=== PATIENT | female | born 1990 | race African-American/Black ===

== ENCOUNTER 2019-05-02 09:44 | Emergency (ER) | payer OTHER ==
[~2019-05-02] VITALS: Ht 167.6 cm; Wt 59.0 kg
[2019-05-02 10:18] VITALS: BP 117/68
[2019-05-02] MEDS ORDERED: benadryl (10:18)
[2019-05-02] MEDS ORDERED: PREDNISONE 20MG TABLET PO ONE (10:45)
== END 2019-05-02 10:58 | disposition home or self-care (01) ==
LOC: ER 09:44
DX: R21 Rash and other nonspecific skin eruption (principal)
CPT/HCPCS: 99283; J7512; 99282

== ENCOUNTER 2019-05-13 09:59 | Emergency (ER) | payer OTHER ==
[~2019-05-13] VITALS: Ht 167.6 cm; Wt 59.0 kg
[~2019-05-13 09:59] MED LIST: benadryl
[2019-05-13 10:35] VITALS: BP 128/77
== END 2019-05-13 11:10 | disposition home or self-care (01) ==
LOC: ER 09:59
DX: L50.9 Urticaria, unspecified (principal)
CPT/HCPCS: 81025; 99282; 99283

== ENCOUNTER 2021-01-10 16:31 | Emergency (ER) | payer OTHER ==
[~2021-01-10] VITALS: Ht 167.6 cm; Wt 60.0 kg
[2021-01-10 18:21] VITALS: BP 116/71
== END 2021-01-10 18:22 | disposition home or self-care (01) ==
LOC: ER 16:31
DX: L50.0 Allergic urticaria (principal)
CPT/HCPCS: 99281

== ENCOUNTER 2021-01-28 11:43 | Emergency (ER) | payer OTHER ==
[~2021-01-28] VITALS: Ht 167.6 cm; Wt 59.0 kg
[2021-01-28] MEDS ORDERED: EPINEPHRINE 1:1000 1 MG/ML AMP IM ONE (12:00)
[2021-01-28] MEDS ORDERED: DIPHENHYDRAMINE 50MG/ML VIAL IV ONE (12:00)
[2021-01-28] MEDS ORDERED: DEXAMETHASONE 4MG/ML 1ML VIAL IV ONE (12:00)
[2021-01-28] MEDS ORDERED: EPIN0.3P3 IM (14:56)
[2021-01-28 15:05] VITALS: BP 11/73
== END 2021-01-28 15:05 | disposition home or self-care (01) ==
LOC: ER 11:43
DX: R07.0 Pain in throat (principal); Z91.040 Latex allergy status
CPT/HCPCS: 96374; 99283; J1100

== ENCOUNTER 2023-06-11 07:25 | Emergency (ER) | payer OTHER ==
[~2023-06-11] VITALS: Ht 162.6 cm; Wt 66.0 kg
[~2023-06-11 07:25] MED LIST changes: +EPIN0.3P3 IM
[2023-06-11 07:49] VITALS: O2SAT 99
[2023-06-11 10:45] VITALS: BP 117/76; PULSE 94; RESP 19; TEMP 98.3
== END 2023-06-11 10:50 | disposition home or self-care (01) ==
LOC: ER 07:25
DX: O99.511 Diseases of the respiratory system complicating pregnancy, first trimester (principal); Z3A.01 Less than 8 weeks gestation of pregnancy; Z91.040 Latex allergy status
CPT/HCPCS: 99283; Z7610